=== PATIENT | female | born 1990 | race Caucasian/White ===

== ENCOUNTER 2022-09-13 19:30 | Outpatient (CLI) | payer OTHER | END 2022-09-13 19:31 | disposition home or self-care (01) | LOC: SLEEPLAB 19:30 | PROVIDERS: ATTEND Family Medicine | DX: G47.33 Obstructive sleep apnea (adult) (pediatric) (principal); R53.83 Other fatigue; F41.9 Anxiety disorder, unspecified; E66.9 Obesity, unspecified; R06.83 Snoring | CPT/HCPCS: 95810 ==

== ENCOUNTER 2023-04-12 10:55 | Outpatient (CLI) | payer OTHER ==
[2023-04-12 11:57] LABS: #Eosinphils 0.2 10x3/uL (0.0-0.5); #Monocytes 0.6 10x3/uL (0.0-1.1); #Neutrophils 5.7 10x3/uL (1.5-8.4); %Basophils 0.3 % (0.0-2.0); %Eosinophils 2.4 % (0.0-6.0); %Lymphocytes 26.9 % (18.0-47.0); %Monocytes 6.2 % (0.0-10.0); %Neutrophils 63.7 % (40.0-75.0); Hemoglobin 13.5 g/dL (12.0-15.5); Mean Corpuscular HGB CONC 34.6 g/dL (32.0-36.0); Mean Corpuscular Hemoglobin 31.3 pg (27.0-33.0); Mean Corpuscular Volume 90.3 fl (81.6-98.3); Mean Platelet Volume 9.6 fl (7.4-10.4); Platelet Count 313 10x3/uL (150-450); Red Blood Cell (RBC) Count 4.32 10x6/uL (3.90-5.03); White Blood Cell (WBC) Count 8.9 10x3/uL (3.5-10.5)
[2023-04-12 12:28] LABS: BHCG - Serum Negative (NEGATIVE); Pregs Control Background? CLEAR/WHITE (CLR/WHITE); Pregs Control Bar Appear? YES (CONTROL BAR)
== END 2023-04-12 10:56 | disposition home or self-care (01) ==
LOC: LABBT 10:55
PROVIDERS: ATTEND Surgery
DX: Z01.812 Encounter for preprocedural laboratory examination (principal); K42.9 Umbilical hernia without obstruction or gangrene
CPT/HCPCS: 84703; 85025

== ENCOUNTER 2023-04-20 10:53 | Day surgery (SDC) | payer OTHER ==
[2023-04-12 11:35] VITALS: BMI 37.8
[2023-04-20] MEDS ORDERED: Scopolamine 1.5 mg/72 hour Patch ONE (14:37)
[2023-04-20] MEDS ORDERED: diphenhydrAMINE 50 MG/ML VIAL ONE (15:15)
[2023-04-20] MEDS ORDERED: Ondansetron PF 4 MG/2 ML Vial ONE ×2 (15:15→16:41)
[2023-04-20] MEDS ORDERED: Ketorolac Tromethamine 30 MG/ML VIAL ONE (15:15)
[2023-04-20] MEDS ORDERED: Lidocaine 1% PF 5 ML VIAL ONE (15:15)
[2023-04-20] MEDS ORDERED: PROPOFOL 200 MG/20 ML VIAL ONE (15:15)
[2023-04-20] MEDS ORDERED: Dexamethasone 20 MG/5 ML VIAL ONE (15:15)
[2023-04-20] MEDS ORDERED: fentaNYL PF 100 MCG/2 ML SYRINGE ONE (15:35)
[2023-04-20] MEDS ORDERED: Midazolam HCl 2 mg/2 ml Vial ONE (15:36)
[2023-04-20] MEDS ORDERED: Bupivacaine 0.25% HCL 30 ML VIAL ONE (15:40)
[2023-04-20] MEDS ORDERED: EPINEPHrine 1 MG/ML AMP ONE (15:40)
[2023-04-20] MEDS ORDERED: Sodium Chloride 0.9% 100 ML ONE (15:45)
[2023-04-20] MEDS ORDERED: CEFAZOLIN 2 GM VIAL ONE (15:45)
[2023-04-20] MEDS ORDERED: fentaNYL 50 mcg/mL 1 mL Vial ONE ×4 (16:41→17:21)
[2023-04-20] MEDS ORDERED: HYDROcodone/Acetaminophen 5/325 mg Tablet ONE (17:28)
[2023-04-20] MEDS ORDERED: Promethazine HCl 25 MG/ML VIAL ONE (18:26)
== END 2023-04-20 18:59 | disposition home or self-care (01) ==
LOC: SDC 10:53
PROVIDERS: ATTEND Surgery
PROC: 0WUF0JZ Supplement Abdominal Wall with Synthetic Substitute, Open Approach (ICD-10-PCS; principal; 2023-04-20)
DX: K42.9 Umbilical hernia without obstruction or gangrene (principal); Z90.89 Acquired absence of other organs; Z91.041 Radiographic dye allergy status
CPT/HCPCS: C1781; J0171; J2250; J2405; J2550; J3010; J3490; S0020

== ENCOUNTER 2024-02-19 13:43 | Outpatient (CLI) | payer OTHER | END 2024-02-19 13:44 | disposition home or self-care (01) | LOC: SCSRAD 13:43 | PROVIDERS: ATTEND Nurse Practitioner Family | DX: M25.532 Pain in left wrist (principal) ==